=== PATIENT | female | born 1975 | race Caucasian/White ===

== ENCOUNTER 2017-09-08 04:40 | Inpatient (IN) | payer OTHER ==
[2017-09-08] MEDS ORDERED: HYDROmorphONE 0.5 MG/0.5 ML SYG IV ×2 (06:00→21:00)
[2017-09-08] MEDS ORDERED: DOCUSATE SODIUM 100 MG CAP PO (06:00)
[2017-09-08] MEDS ORDERED: ACETAMINOPHEN 325 MG TAB PO (06:00)
[2017-09-08] MEDS ORDERED: ONDANSETRON 4 MG INJ IV (06:00)
[2017-09-08] MEDS ORDERED: BISACODYL (EC) 5 MG TAB PO (06:00)
[2017-09-08] MEDS ORDERED: NACL 0.9% 3 ML SYG IV (06:00)
[2017-09-08 06:44] LABS: ADD MAN DIFF? NO
[2017-09-08 06:51] LABS: BASOPHILS % 0.3 % (0.0-2.0); EOSINOPHILS # 0.1 10^3/ul (0.0-0.5); EOSINOPHILS % 0.5 % (0.0-7.0); HEMATOCRIT 38.4 % (37.0-47.0); HEMOGLOBIN 12.8 g/dl (12.0-16.0); LYMPHOCYTES # 2.6 10^3/ul (0.8-2.9); LYMPHOCYTES % 25.3 % (15.0-51.0); MEAN CORPUSCULAR HEMOGLOBIN 31.4 pg (29.0-33.0); MEAN CORPUSCULAR HGB CONC 33.3 g/dl (32.0-37.0); MEAN CORPUSCULAR VOLUME 94.3 fl (82.0-101.0); MEAN PLATELET VOLUME 9.6 fl (7.4-10.4); MONOCYTE # 0.7 10^3/ul (0.3-0.9); MONOCYTES % 6.6 % (0.0-11.0); NEUTROPHILS % 66.9 % (39.0-77.0); PLATELET COUNT 252 10^3/UL (140-415); RED BLOOD COUNT 4.07 10^6/ul (4.20-5.40); RED CELL DISTRIBUTION WIDTH 13.5 % (11.5-14.5)
[2017-09-08 06:51] LABS: WHITE BLOOD COUNT 10.4 10^3/ul (4.8-10.8)
[2017-09-08] MEDS: SOD CHLORIDE 0.9% 1,000 ML IV ×2 (06:54→17:19)
[2017-09-08 06:59] LABS: HEMOGLOBIN A1C 4.9 % (0-5.9)
[2017-09-08 07:10] LABS: ALANINE AMINOTRANSFERASE 25 IU/L (13-69); ALBUMIN 3.3 g/dl (3.3-4.9); ALBUMIN/GLOBULIN RATIO 1.26; ALKALINE PHOSPHATASE 52 IU/L (42-121); ANION GAP 12 (8-16); ASPARTATE AMINO TRANSFERASE 19 IU/L (15-46); BILIRUBIN,INDIRECT 0.3 mg/dl (0-1.1); BILIRUBIN,TOTAL 0.3 mg/dl (0.2-1.3); BLOOD UREA NITROGEN 8 mg/dl (7-20); CALCIUM 8.8 mg/dl (8.4-10.2); CARBON DIOXIDE 24 mmol/L (21-31); CHLORIDE 115 mmol/L (97-110); GLUCOSE 102 mg/dl (70-220); POTASSIUM 3.9 mmol/L (3.5-5.1); SODIUM 147 mmol/L (135-144); TOTAL PROTEIN 5.9 g/dl (6.1-8.1)
[2017-09-08 07:12] LABS: LIPASE 42 U/L (23-300)
[2017-09-08] MEDS ORDERED: CIPROFLOXACIN 400MG/D5W 200 ML IVPB (09:00)
[2017-09-08] MEDS: metroNIDAZOLE 500 MG/NS (PMX) 100 ML IVPB (09:10)
[2017-09-08] MEDS ORDERED: HYDROCODONE/APAP (5/325) TAB PO (09:30)
[2017-09-08] MEDS: SOD CHLORIDE 0.9% 500 ML IV ×2 (11:16→13:54)
[2017-09-08 13:08] LABS: ADD UMIC YES; UR ASCORBIC ACID NEGATIVE (NEGATIVE); UR BACTERIA FEW /HPF (NONE SEEN); UR BILIRUBIN (Dip) NEGATIVE (NEGATIVE); UR BLOOD (Dip) 2+ mg/dL (NEGATIVE); UR CLARITY SLIGHTLY CLOUDY (CLEAR); UR COLOR YELLOW (YELLOW); UR GLUCOSE (Dip) NEGATIVE (NEGATIVE); UR KETONES (Dip) NEGATIVE (NEGATIVE); UR LEUKOCYTE ESTERASE (Dip) NEGATIVE Leu/ul (NEGATIVE); UR MUCUS MODERATE /HPF (NONE SEEN); UR NITRITE (Dip) NEGATIVE (NEGATIVE); UR RBC 72 /HPF (0-5); UR SPECIFIC GRAVITY (Dip) 1.015 (1.003-1.030); UR SQUAMOUS EPITHELIAL CELL FEW /HPF (FEW); UR TOTAL PROTEIN (Dip) NEGATIVE (NEGATIVE); UR UROBILINOGEN (Dip) NEGATIVE (NEGATIVE); UR WBC 7 /HPF (0-5)
[2017-09-08 13:30] LABS: AMPHETAMINE/METHAMPHETAMINE NEGATIVE (NEGATIVE); BARBITURATES NEGATIVE (NEGATIVE); BENZODIAZEPINES NEGATIVE (NEGATIVE); CANNABINOIDS NEGATIVE (NEGATIVE); COCAINE NEGATIVE (NEGATIVE); OPIATES POSITIVE (NEGATIVE)
[2017-09-08] MEDS: PANTOPRAZOLE 40 MG INJ IV (17:37)
[2017-09-08] MEDS: SERTRALINE 50 MG TAB PO (17:37)
[2017-09-08] MEDS ORDERED: IOHEXOL 14.3 MG(I)/ML (ADULT) BTL PO (18:00)
[2017-09-08 20:29] LABS: AMYLASE 55 U/L (11-123)
[2017-09-08 20:29] LABS: LIPASE 91 U/L (23-300)
[2017-09-08] MEDS ORDERED: TOPIRAMATE 100 MG TAB PO (21:00)
== END 2017-09-08 21:15 | disposition left against medical advice (07) | DRG 392 ==
LOC: MS2 04:40
DX: R10.11 Right upper quadrant pain (principal); G44.009 Cluster headache syndrome, unspecified, not intractable; Z76.5 Malingerer [conscious simulation]
CPT/HCPCS: 74181; 80053; 80307; 81001; 82150; 83036; 83690; 84443; 85025; 87086; 93005